=== PATIENT | male | born 1995 | race Caucasian/White ===

== ENCOUNTER 2018-03-11 13:46 | Emergency (ER) | END 2018-03-11 15:54 | disposition home or self-care (01) ==

== ENCOUNTER 2018-06-08 16:17 | Emergency (ER) | payer MEDICAID ==
[~2018-06-08] VITALS: Wt 108.2 kg
[~2018-06-08 16:17] MED LIST: CEPH-443 PO; IBUP-1542 PO; SULF1TAB31 PO
[2018-06-08 16:20] VITALS: BP 164/77; PULSE 69; RESP 17
[2018-06-08] MEDS ORDERED: MUPI22OI2 TOP (17:49)
[2018-06-08] MEDS ORDERED: CEPH-443 PO (17:49)
--- NOTE | 2018-06-08 18:00 | ERD ---
ER Documentation Chief Complaint Chief Complaint BILAT 1ST TOE PAIN/SWELLING/INGROWN TOENAIL HPI Patient is a 23-year-old male who presents to the ER for concerns of bilateral first toe pain and swelling. Patient has a history of ingrown toenails. Patient states the areas are erythematous and tender. Patient has no fevers or chills. Patient denies any falls or trauma. Patient is able to ambulate without any difficulty. ROS All systems reviewed and are negative except as per history of present illness. Medications Home Meds Active Scripts Mupirocin* (Bactroban*) 2% -22 Gram Oint...g., 1 APPLIC TOP BID for 7 Days, EA Prov:ROSY FORTE PA-C 06/08/18 Cephalexin* (Keflex*) 500 Mg Capsule, 500 MG PO TID for 7 Days, CAP Prov:ROSY FORTE PA-C 06/08/18 Ibuprofen* (Motrin*) 600 Mg Tab, 600 MG PO Q8, #15 TAB Prov:JOHN RANDALL MD 03/11/18 Sulfamethoxazole/Trimethoprim* (Bactrim Ds* Tablet) 1 Each Tablet, 1 TAB PO BID, #14 TAB Prov:JOHN RANDALL MD 03/11/18 Cephalexin* (Keflex*) 500 Mg Capsule, 500 MG PO TID for 7 Days, CAP Prov:JOHN RANDALL MD 03/11/18 Ibuprofen* (Motrin*) 600 Mg Tab, 600 MG PO Q6, #30 TAB Prov:CARMITA TUTTLE PA-C 10/23/15 Cephalexin* (Keflex*) 500 Mg Capsule, 500 MG PO QID for 7 Days, CAP Prov:CARMITA TUTTLE PA-C 10/23/15 Allergies Allergies: Coded Allergies: No Known Allergy (Unverified , 11/07/15) PMhx/Soc Medical and Surgical Hx: pt denies Medical Hx, pt denies Surgical Hx History of Surgery: No Anesthesia Reaction: No Hx Neurological Disorder: No Hx Respiratory Disorders: No Hx Cardiac Disorders: No Hx Psychiatric Problems: No Hx Miscellaneous Medical Probl: No Hx Alcohol Use: Yes (SOCIALLY) Hx Substance Use: No Hx Tobacco Use: Yes Smoking Status: Current every day smoker FmHx Family History: No diabetes Physical Exam Vitals Vital Signs Date Temp Pulse Resp B/P (MAP) Pulse Ox O2 O2 Flow FiO2 Time Delivery Rate 06/08/18 99.1 69 17 164/77 98 16:20 (106) Physical Exam GENERAL: Well-developed, well-nourished male. Appears in no acute distress. HEAD: Normocephalic, atraumatic. EYES: Pupils are equally reactive bilaterally. EOMs grossly intact. No conjunctival erythema. ENT: Moist mucous membranes. No uvula deviation. No kissing tonsils. NECK: Supple. No meningismus. Normal range of motion of the neck. LUNG: Clear to auscultation bilaterally. No rhonchi, wheezing, rales or coarse breath sounds. HEART: Regular rate and rhythm. No murmurs, rubs or gallops. EXTREMITIES: Equal pulses bilaterally. No peripheral clubbing, cyanosis or rahel a. No unilateral leg swelling. NEUROLOGIC: Alert and oriented. Moving all four extremities without any difficulty. Normal speech. Steady gait. SKIN: Erythema and swelling noted to bilateral first digit toes. Mild paronychia with ingrown toenails is noted bilaterally. No streaking. No warmth. Normal Pulses. Normal cap refill. Procedures/MDM MEDICAL DECISION MAKING: This is a 23-year-old male presents the ER for concerns of bilateral big toe swelling. Patient has a history of ingrown toenails.. Vital signs were reviewed. Patient was afebrile. Physical exam findings were concerning for paronychia as well as ingrown toenail. Patient will be given antibiotics and advised to follow-up with a referral and information aide on outpatient basis for toenail removal after infection improves. Patient advised to use Epsom salt soaks. Low suspicion for fracture, dislocation, deep space infection, compartment syndrome. PRESCRIPTIONS: Mupirocin, Keflex DISCHARGE: At this time, patient is stable for discharge and outpatient management. RICE therapy and ROM exercises were advised to avoid stiffness. I have instructed the patient to follow-up with his/her primary care physician in 1-2 days. I have discussed with the patient the possibility of needing to see an vocational rehabilitation specialist for further workup and imaging if the pain persists. I have instructed the patient to promptly return to the ER for any new or worsening symptoms including increased pain, swelling, redness, warmth or fever. The patient and/or family expressed understanding of and agreement with this plan. All questions were answered. Home care instructions were provided. Disclaimer: Inadvertent spelling and grammatical errors are likely due to EHR/dictation software use and do not reflect on the overall quality of patient care. Also, please note that the electronic time recorded on this note does not necessarily reflect the actual time of the patient encounter. Departure Diagnosis: Primary Impression: Ingrown toenail with infection Additional Impression: Paronychia Condition: Fair Patient Instructions: Ingrown Toenail, Infected (Abx Only), Paronychia Referrals: MARIA LUISA STALEY,SAMANTA MACHADO,TOMY MOORE DPM, CAROLYN DP COLETTE HARMON ERIC H. D.P.M. HAGOPJANIAN, ARMEN DPM [facility] YOU HAVE RECEIVED A MEDICAL SCREENING EXAM AND THE RESULTS INDICATE THAT YOU DO NOT HAVE A CONDITION THAT REQUIRES URGENT TREATMENT IN THE EMERGENCY DEPARTMENT. FURTHER EVALUATION AND TREATMENT OF YOUR CONDITION CAN WAIT UNTIL YOU ARE SEEN IN YOUR DOCTORS OFFICE WITHIN THE NEXT 1-2 DAYS. IT IS YOUR RESPONSIBILITY TO MAKE AN APPOINTMENT FOR FOLOW-UP CARE. IF YOU HAVE A PRIMARY DOCTOR --you should call your primary doctor and schedule an appointment IF YOU DO NOT HAVE A PRIMARY DOCTOR YOU CAN CALL OUR PHYSICIAN REFERRAL HOTLINE AT IF YOU CAN NOT AFFORD TO SEE A PHYSICIAN YOU CAN CHOSE FROM THE FOLLOWING [facility] CLINICS [facility] [address] [facility]. [facility] [address] [facility]. [facility] [address] [facility] [address] [facility]. [facility] [address] [facility]. [facility] [address] [facility]. [facility] YOU HAVE RECEIVED A MEDICAL SCREENING EXAM AND THE RESULTS INDICATE THAT YOU DO NOT HAVE A CONDITION THAT REQUIRES URGENT TREATMENT IN THE EMERGENCY DEPARTMENT. FURTHER EVALUATION AND TREATMENT OF YOUR CONDITION CAN WAIT UNTIL YOU ARE SEEN IN YOUR DOCTORS OFFICE WITHIN THE NEXT 1-2 DAYS. IT IS YOUR RESPONSIBILITY TO MAKE AN APPOINTMENT FOR FOLOW-UP CARE. IF YOU HAVE A PRIMARY DOCTOR --you should call your primary doctor and schedule and appointment IF YOU DO NOT HAVE A PRIMARY DOCTOR YOU CAN CALL OUR PHYSICIAN REFERRAL HOTLINE AT . IF YOU CAN NOT AFFORD TO SEE A PHYSICIAN YOU CAN CHOSE FROM THE FOLLOWING [facility] INSTITUTIONS: [facility] [address] [place] [address] [facility] [address] [place] [address] [facility] [address] [place] [address] Additional Instructions: Llame al doctor MAANA y holley jann LIDIA PARA DENTRO DE 1-2 MACIAS.Dgale a la secretaria que nosotros le instruimos hacer esta lidia.Avise o llame si zaidi condicin se empeora antes de la lidia. Regresa aqui si peor o no mejor. ROSY FORTE PA-C Jun 08, 2018 18:00
== END 2018-06-08 17:59 | disposition home or self-care (01) ==
LOC: FTE 16:17
DX: L03.032 Cellulitis of left toe (principal); L03.031 Cellulitis of right toe
CPT/HCPCS: 99283